=== PATIENT | male | born 1985 ===

== ENCOUNTER 2023-02-24 06:16 | Day surgery (SDC) | payer OTHER ==
[~2023-02-24] VITALS: Ht 165.1 cm; Wt 95.3 kg
[~2023-02-24 06:16] MED LIST: ALBUTERO IH; [UNRECOGNIZED DRUG - OTHER] PO
[2023-02-24] MEDS ORDERED: CILOXAN5 ML OTIC (11:56)
[2023-02-24] MEDS ORDERED: CEPHALEXIN500 MG PO (11:57)
== END 2023-02-24 14:15 | disposition home or self-care (01) ==
LOC: CIR.AMB 06:16
PROVIDERS: ATTEND Otolaryngology Otology & Neurotology
DX: H70.11 Chronic mastoiditis, right ear (principal); H74.21 Discontinuity and dislocation of right ear ossicles; H72.01 Central perforation of tympanic membrane, right ear; H72.11 Attic perforation of tympanic membrane, right ear; H90.11 Conductive hearing loss, unilateral, right ear, with unrestricted hearing on the contralateral side; E11.9 Type 2 diabetes mellitus without complications